=== PATIENT | female | born 1995 | race Caucasian/White ===

== ENCOUNTER 2016-10-12 05:25 | Emergency (ER) | payer BC, OTHER ==
[~2016-10-12] VITALS: Ht 157.5 cm; Wt 47.0 kg
[2016-10-12 05:27] VITALS: Ht 157.5 cm; Wt 47.0 kg
[2016-10-12] MEDS ORDERED: ALBUTEROL 0.5% (NEB) 2.5 MG/0.5 ML AMP HHN STA (06:32)
[2016-10-12] MEDS ORDERED: IPRATROPIUM (NEB) 0.5 MG/2.5 ML AMP HHN ONE (07:00)
[2016-10-12] MEDS ORDERED: DEXAMETHASONE 10 MG/ML 1 ML INJ IM ONE (07:00)
[2016-10-12] MEDS ORDERED: ALBU18HF INHALATION (07:24)
[2016-10-12] MEDS ORDERED: ALBU2.5V3 NEB (07:24)
[2016-10-12] MEDS ORDERED: BECL8.7A INH (07:24)
[2016-10-12 07:45] VITALS: BP 118/79; PULSE 86; RESP 18; TEMP 98.4
--- NOTE | 2016-10-12 07:47 | ERD ---
ER Documentation Chief Complaint Date/Time DATE: 10/12/16 TIME: 07:42 Chief Complaint SOB X 2-3 DAYS. HX ASTHMA BUT OUT OF ALBUTEROL AND QVAR HPI 21-year-old female with history of asthma is complaining of shortness of breath 2-3 days. Patient states that for the last month, she need to use the albuterol inhaler daily. She has run out of her inhaler. She has a nebulizer machine, but only has ipratropium bromide, which did not help her breathing. She also had been using Qvar in the past, again she had ran out of the Qvar. Patient is in process of changing her insurance, does not have a PCP at this time. Denies fever or chills. ROS All systems reviewed and are negative except as per history of present illness. Medications Home Meds Active Scripts Beclomethasone Dip* (Qvar 40*) 7.3 Gm Inha, 1 PUFF INH BID, #1 INHALER Prov:SHARLA DELGADO. IT PROGRAM MANAGER 10/12/16 Albuterol Sulfate* (Albuterol Sulfate* Neb) 0.083%-3 Ml Neb, 2.5 MG NEB Q4 Y for SHORTNESS OF BREATH, #30 EA Prov:SHARLA DELGADO. IT PROGRAM MANAGER 10/12/16 Albuterol Sulfate* (Ventolin HFA*) 18 Gm Hfa.aer.ad, 2 PUFF INHALATION Q4H, #1 INHALER Prov:SHARLA DELGADO. IT PROGRAM MANAGER 10/12/16 PMhx/Soc Medical and Surgical Hx: pt denies Surgical Hx History of Surgery: No Anesthesia Reaction: No Hx Neurological Disorder: No Hx Respiratory Disorders: Yes (Asthma) Hx Cardiac Disorders: No Hx Psychiatric Problems: No Hx Miscellaneous Medical Probl: No Hx Alcohol Use: Yes Hx Substance Use: No Hx Tobacco Use: No Smoking Status: Never smoker Physical Exam Vitals Vital Signs Date Time Temp Pulse Resp B/P Pulse Ox O2 Delivery O2 Flow Rate FiO2 10/12/16 06:41 72 16 97 21 10/12/16 05:27 96.9 72 22 117/74 96 Physical Exam General impression: Well-developed, well-nourished, 21-year-old female, alert, oriented, in no acute distress Head: Normocephalic, atraumatic. Eyes: PERRL, EOM normal. Conjunctiva not injected. ENT: External canals clear. TM's pearly arvizu. Nasal mucosa, oral mucosa and oropharynx are normal. Neck: Supple, nontender. No lymphanopathy. No nuchal rigidity. Respiration: Normal respiratory effort. Constricted air movement and wheezing noted throughout. Cardiovascular: Regular rate and rhythm. No murmurs or extra heart sounds. Neuro: Mental status normal, speech normal. Skin: Normal turgor. No rash or lesions. Psych: Normal mood and affect. Results 24 hrs Current Medications Medications (Trade) Dose Ordered Sig/Kasie Route PRN Reason Start Time Stop Time Status Last Admin Dose Admin Dexamethasone (Decadron) 10 mg ONCE ONCE IM 10/12/16 07:00 10/12/16 07:01 DC 10/12/16 06:43 Albuterol (Proventil 0.5% (Neb)) 5 mg ONCE STAT HHN 10/12/16 06:32 10/12/16 06:34 DC 10/12/16 06:38 Ipratropium Cameron (Atrovent 0.02% (Neb)) 0.5 mg ONCE ONCE HHN 10/12/16 07:00 10/12/16 07:01 DC 10/12/16 06:38 Procedures/MDM Well-appearing 21-year-old female with history of asthma presents to ED with asthma exacerbation. Dexamethasone 10 mg IM, albuterol 5 mg and Atrovent 0.5 mg nebulizer treatment given to the patient in the ED. After treatment, patient reports breathing much better. Repeat exam revealed clear lungs with good air movement. Low suspicion for pneumonia, bronchitis, pneumothorax, or PE. Patient appears well, stable for discharge and outpatient management. Community clinic referral provided for the patient. Medical decision making shared with patient and family. Education provided to patient and family. Patient and family expressed understanding of the plan. Medications on discharge: Albuterol HFA, albuterol neb, Qvar. Follow-up: Primary care provider in 2-3 days or return to ED if worse. Departure Diagnosis: Primary Impression: Asthma exacerbation Condition: Stable Patient Instructions: Asthma, Acute (Adult) Referrals: COMMUNITY CLINICS YOU HAVE RECEIVED A MEDICAL SCREENING EXAM AND THE RESULTS INDICATE THAT YOU DO NOT HAVE A CONDITION THAT REQUIRES URGENT TREATMENT IN THE EMERGENCY DEPARTMENT. FURTHER EVALUATION AND TREATMENT OF YOUR CONDITION CAN WAIT UNTIL YOU ARE SEEN IN YOUR DOCTORS OFFICE WITHIN THE NEXT 1-2 DAYS. IT IS YOUR RESPONSIBILITY TO MAKE AN APPOINTMENT FOR FOLOW-UP CARE. IF YOU HAVE A PRIMARY DOCTOR --you should call your primary doctor and schedule an appointment IF YOU DO NOT HAVE A PRIMARY DOCTOR YOU CAN CALL OUR PHYSICIAN REFERRAL HOTLINE AT IF YOU CAN NOT AFFORD TO SEE A PHYSICIAN YOU CAN CHOSE FROM THE FOLLOWING [facility] [address] [facility] [address] [facility] [address] [facility] [address] [facility] [address] [facility]. [facility]. [address] Additional Instructions: Call your primary care doctor TOMORROW for an appointment during the next 2-3 days.See the doctor sooner or return here if your condition worsens before your appointment time. SHARLA DELGADO NP Oct 12, 2016 07:47
== END 2016-10-12 07:45 | disposition home or self-care (01) ==
LOC: FTE 05:25
DX: J45.901 Unspecified asthma with (acute) exacerbation (principal)
CPT/HCPCS: 94664; 96372; 99284; J1100

== ENCOUNTER 2016-11-14 00:35 | Emergency (ER) | payer BC ==
[~2016-11-14] VITALS: Ht 152.4 cm; Wt 48.0 kg
[~2016-11-14 00:35] MED LIST: ALBU18HF INHALATION; ALBU2.5V3 NEB; BECL8.7A INH
[2016-11-14 00:37] VITALS: Ht 152.4 cm; Wt 48.0 kg
[2016-11-14] MEDS ORDERED: METHYLPREDNISOLONE 125 MG INJ IV STA (00:48)
[2016-11-14] MEDS ORDERED: DIPHENHYDRAMINE 50 MG INJ IV STA (00:48)
[2016-11-14] MEDS ORDERED: FAMOTIDINE 20 MG INJ IV STA (00:48)
[2016-11-14] MEDS ORDERED: EPINEPHrine 1 MG INJ IM STA (01:18)
[2016-11-14 02:40] VITALS: BP 96/72; PULSE 88; RESP 12
[2016-11-14] MEDS ORDERED: PRED20TA PO (03:02)
[2016-11-14] MEDS ORDERED: ALBU8.5H3 INH (03:03)
[2016-11-14] MEDS ORDERED: EPIN0.3P4 INJ (03:03)
--- NOTE | 2016-11-14 03:06 | ERD ---
ER Documentation Chief Complaint Date/Time DATE: 11/14/16 TIME: 03:03 Chief Complaint allergic reaction to peanuts- states throat is closing HPI This is a 21-year-old female with a known allergy to peanuts she was eating out and had a lettuce wrap that probably had some peanuts in it because she had an anaphylactic reaction with diffuse hives nasal passage swelling and some wheezing. No swelling of the throat mouth or tongue. The patient had an EpiPen but had so she was afraid to use it. She has no airway compromise no difficulty talking or breathing. No difficulty handling secretions. She does say that her nose is swollen shut ROS All systems reviewed and are negative except as per history of present illness. Medications Home Meds Active Scripts Epinephrine (Epipen 2-Elbert) 0.3 Mg/0.3 Ml Pen.injctr, 1 EA INJ ONCE Y for ALLERGIC REACTION, #1 EA Prov:MEDHAT DONALDSON. DO 11/14/16 Albuterol Sulfate* (Proair HFA*) 8.5 Gm Hfa.aer.ad, 2 PUFF INH Q4, #1 INHALER Prov:MEDHAT DONALDSON. DO 11/14/16 Prednisone* (Prednisone*) 20 Mg Tab, 60 MG PO DAILY for 5 Days, TAB Prov:MEDHAT DONALDSON. DO 11/14/16 Beclomethasone Dip* (Qvar 40*) 7.3 Gm Inha, 1 PUFF INH BID, #1 INHALER Prov:SHARLA DELGADO. METAL MINE INSPECTOR 10/12/16 Albuterol Sulfate* (Albuterol Sulfate* Neb) 0.083%-3 Ml Neb, 2.5 MG NEB Q4 Y for SHORTNESS OF BREATH, #30 EA Prov:SHARLA DELGADO. METAL MINE INSPECTOR 10/12/16 Albuterol Sulfate* (Ventolin HFA*) 18 Gm Hfa.aer.ad, 2 PUFF INHALATION Q4H, #1 INHALER Prov:SHARLA DELGADO. METAL MINE INSPECTOR 10/12/16 Allergies Allergies: Coded Allergies: peanut (Verified Allergy, Unknown, hives,SOB, 11/14/16) PMhx/Soc Medical and Surgical Hx: pt denies Medical Hx, pt denies Surgical Hx History of Surgery: No Anesthesia Reaction: No Hx Neurological Disorder: No Hx Respiratory Disorders: Yes (Asthma) Hx Cardiac Disorders: No Hx Psychiatric Problems: No Hx Miscellaneous Medical Probl: No Hx Alcohol Use: No Hx Substance Use: No Hx Tobacco Use: No Smoking Status: Never smoker FmHx Family History: No coronary disease Physical Exam Vitals Vital Signs Date Time Temp Pulse Resp B/P Pulse Ox O2 Delivery O2 Flow Rate FiO2 11/14/16 02:40 88 12 96/72 100 11/14/16 01:46 89 16 122/73 100 11/14/16 00:37 98.2 92 24 113/70 96 Physical Exam Const: Well-developed, well-nourished Head: Atraumatic, normocephalic Eyes: Normal Conjunctiva, PERRLA, EOMI, normal sclera, no nystagmus ENT: Normal External Ears, Nose and Mouth, moist mucus membranes nasal passages with severe swelling inside, there is no swelling of the tongue/ mouth. Neck: Full range of motion. No meningismus, no lymphadenopathy. Resp: Clear to auscultation bilaterally, no wheezing, rhonchi, rales Cardio: Regular rate and rhythm, no murmurs, S1 S2 present Abd: Soft, non tender x 4, non distended. Normal bowel sounds, no guarding or rebound, no pulsitile abdominal masses or bruits Skin: Diffuse hives Back: No midline or flank tenderness Ext: No cyanosis, or edema, FROM x 4, normal inspection, neurovascularly intact x 4 Neur: Awake and alert, STR 5/5 x 4, sensation intact x 4, no focal findings, cerebellum intact Psych: Normal Mood and Affect Results 24 hrs Current Medications Medications (Trade) Dose Ordered Sig/Kasie Route PRN Reason Start Time Stop Time Status Last Admin Dose Admin Diphenhydramine HCl (Benadryl) 25 mg ONCE STAT IV 11/14/16 00:48 11/14/16 00:49 11/14/16 01:03 Famotidine (Pepcid Iv) 20 mg ONCE STAT IV 11/14/16 00:48 11/14/16 00:49 11/14/16 01:03 Methylprednisolone Sodium Succinate (Solu-Medrol) 125 mg ONCE STAT IV 11/14/16 00:48 11/14/16 00:49 11/14/16 01:03 Epinephrine (EPINEPHrine) 0.3 mg ONCE STAT IM 11/14/16 01:18 11/14/16 01:19 11/14/16 01:29 Procedures/MDM After treatment the patient's nasal passages are now open. Hives of completely resolved. We will discharge home with prednisone and albuterol with epi pens instructed them to take Benadryl every every 4-6 hours Departure Diagnosis: Primary Impression: Acute anaphylaxis Encounter type: initial encounter Qualified Code: T78.2XXA - Acute anaphylaxis, initial encounter Condition: Stable Patient Instructions: Anaphylaxis, General Referrals: NO PRIMARY,CARE PHYSICIAN (PCP) MEDHAT DONALDSON DO Nov 14, 2016 03:06
== END 2016-11-14 03:25 | disposition home or self-care (01) ==
LOC: E/R 00:35
DX: T78.2XXA Anaphylactic shock, unspecified, initial encounter (principal); J45.909 Unspecified asthma, uncomplicated
CPT/HCPCS: 96372; 96374; 96375; 99284; J0171; J1200; J2930